=== PATIENT | male | born 1965 | race Hispanic/Latino ===

== ENCOUNTER 2020-07-07 09:23 | Emergency (ER) | payer OTHER | END 2020-07-07 10:26 | disposition home or self-care (01) | LOC: EDH 09:23 | DX: S01.511A Laceration without foreign body of lip, initial encounter (principal); S01.512A Laceration without foreign body of oral cavity, initial encounter; K12.2 Cellulitis and abscess of mouth; Z72.0 Tobacco use; X58.XXXA Exposure to other specified factors, initial encounter; Y93.89 Activity, other specified; Y92.89 Other specified places as the place of occurrence of the external cause; Y99.8 Other external cause status ==

== ENCOUNTER 2021-01-11 20:17 | Emergency (ER) | payer OTHER ==
[2021-01-11] MEDS ORDERED: ACETAMINOPHEN EXTRA STRENGTH 500 MG TABLET ONE (21:27)
== END 2021-01-11 21:40 | disposition home or self-care (01) ==
LOC: EDH 20:17
DX: S23.41XA Sprain of ribs, initial encounter (principal); S20.219A Contusion of unspecified front wall of thorax, initial encounter; Z72.0 Tobacco use; X58.XXXA Exposure to other specified factors, initial encounter; Y93.89 Activity, other specified; Y92.89 Other specified places as the place of occurrence of the external cause; Y99.8 Other external cause status
CPT/HCPCS: 71101

== ENCOUNTER 2021-09-06 05:53 | Emergency (ER) | payer SELFPAY ==
[~2021-09-06] VITALS: Ht 167.6 cm; Wt 60.3 kg
[2021-09-06 05:54] VITALS: BP 115/71
[2021-09-06] MEDS ORDERED: PRED20TA3 PO ×2 (06:14→06:15)
[2021-09-06] MEDS ORDERED: PRED10 PO (06:18)
[2021-09-06] MEDS ORDERED: SOLU-MEDROL 125MG VIAL IM ONE (06:20)
== END 2021-09-06 06:27 | disposition home or self-care (01) ==
LOC: EDH 05:53
DX: L50.9 Urticaria, unspecified (principal)
CPT/HCPCS: 96372; 99283; J2930

== ENCOUNTER 2022-04-23 11:09 | Emergency (ER) | payer OTHER ==
[~2022-04-23] VITALS: Ht 167.6 cm; Wt 61.2 kg
[~2022-04-23 11:09] MED LIST: PRED10 PO; PRED20TA3 PO
[2022-04-23 11:18] VITALS: BP 111/77
[2022-04-23] MEDS ORDERED: FENTANYL 50 MCG/HR PATCH TD SCH (12:00)
[2022-04-23] MEDS ORDERED: HYDROCODONE/ACETAMINOPHEN 10/325 MG TAB PO ONE (12:00)
== END 2022-04-23 12:53 | disposition home or self-care (01) ==
LOC: EDH 11:09
DX: G89.18 Other acute postprocedural pain (principal); M79.602 Pain in left arm